=== PATIENT | female | born 1965 | race Caucasian/White ===

== ENCOUNTER 2018-01-02 15:59 | Outpatient (CLI) | payer OTHER | END 2018-01-02 16:00 | disposition home or self-care (01) | LOC: BICMAMMO 15:59 | PROVIDERS: ATTEND Obstetrics & Gynecology | DX: Z12.31 Encounter for screening mammogram for malignant neoplasm of breast (principal) | CPT/HCPCS: 77063; 77067 ==

== ENCOUNTER 2019-01-05 09:56 | Outpatient (CLI) | payer OTHER ==
--- NOTE | 2019-01-05 13:15 | MMO ---
Bilateral MAMMO Bilat Screen [facility]. CLINICAL HISTORY: Patient is 53 years old and is seen for screening. The patient has no family history of breast cancer. The patient has no personal history of cancer. The patient has a history of left needle biopsy at age 47 - fibroadenoma and bilateral needle biopsy in 20'S - benign. VIEWS: The views performed were: bilateral craniocaudal with tomosynthesis; bilateral mediolateral oblique with tomosynthesis; and right exaggerated craniocaudal. FILMS COMPARED: The present examination has been compared to prior imaging studies performed at [facility] on 12/03/2014, 12/06/2015, 12/12/2016 and 01/02/2018. This study has been interpreted with the assistance of computer-aided detection. MAMMOGRAM FINDINGS: There are scattered fibroglandular densities. Left biopsy clip with stable nodule. There are no suspicious masses, suspicious calcifications, or new areas of architectural distortion. IMPRESSION: THERE IS NO MAMMOGRAPHIC EVIDENCE OF MALIGNANCY. A ROUTINE FOLLOW-UP MAMMOGRAM IN 1 YEAR IS RECOMMENDED. THE RESULTS OF THIS EXAM WERE SENT TO THE PATIENT. ACR BI-RADS Category 2 - Benign finding MAMMOGRAPHY NOTE: 1. A negative mammogram report should not delay a biopsy if a dominant of clinically suspicious mass is present. 2. Approximately 10% to 15% of breast cancers are not detected by mammography. 3. Adenosis and dense breasts may obscure an underlying neoplasm. Reported by: MARÍA KAUFMAN MD Electonically Signed: [id number]
== END 2019-01-05 09:57 | disposition home or self-care (01) ==
LOC: BICMAMMO 09:56
PROVIDERS: ATTEND Obstetrics & Gynecology
DX: Z12.31 Encounter for screening mammogram for malignant neoplasm of breast (principal)
CPT/HCPCS: 77063; 77067

== ENCOUNTER 2019-03-21 05:10 | Inpatient (IN) | payer OTHER ==
[2019-03-21] MEDS ORDERED: Acetaminophen 325 MG TAB PO PRN (06:26)
[2019-03-21] MEDS ORDERED: Ondansetron PF 4 MG/2 ML Vial IVP PRN (06:26)
[2019-03-21] MEDS ORDERED: Sodium Chloride 0.9% 1,000 ML IV SCH (06:30)
[2019-03-21 07:08] VITALS: BMI 23.3
[2019-03-21] MEDS ORDERED: Famotidine/PF 20 mg/2ml Vial SLOW IVP SCH ×2 (07:30→21:00)
[2019-03-21] MEDS ORDERED: Enoxaparin Sodium 40 MG/0.4 ML SYRINGE SC SCH (09:00)
[2019-03-21] MEDS ORDERED: predniSONE 20 MG TAB PO SCH (11:30)
[2019-03-21 15:14] VITALS: BP 128/76; TEMP 98.8
--- NOTE | 2019-03-21 16:56 | HP ---
This is a short-stay summary. DISCHARGE DIAGNOSES: As of the following; 1. Angioedema, most likely from lisinopril. 2. History of hypertension. 3. Reflux. HOSPITAL COURSE: The patient is a very pleasant 53-year-old female who initially presented to the hospital with some swelling of her tongue and difficulty swallowing. The patient stated that she initially noticed it at around 4 a.m. this morning that woke her up. She stated that her symptoms gradually worsened to the point that she felt that her right side of the face was a little bit swollen, and she got afraid that she would not be able to take a deep breath or breathe, so she came into the ER for further evaluation. The patient states that she has had certain recent allergies to doxycycline and also to penicillin which she never had a problem with before. She denies taking any recent new medications. She denies eating out. She denies any bzru-mzj-dncklgl medications. PAST MEDICAL HISTORY: As of the following; she has a; 1. History of hyperlipidemia. 2. Hypertension. 3. GERD. PAST SURGICAL HISTORY: She has had a x3 and sinus surgery. SOCIAL HISTORY: She denies any alcohol use, drug use, or smoking history. She is a full code. Lives with her family. ALLERGIES: SHE IS ALLERGIC TO NOW ROBERTO INHIBITORS, CIPRO, DOXYCYCLINE, PENICILLIN, AND SULFA. MEDICATIONS: 1. She takes Prilosec 20 mg daily. 2. Simvastatin 10 mg daily. 3. She is also on Zyrtec 1 p.o. daily. FAMILY HISTORY: No history of heart disease, cancer, or stroke. PHYSICAL EXAMINATION: VITAL SIGNS: As of the following; temperature 98.6, pulse 84, respirations 16, O2 sat is 98% room air, and blood pressure 137/76. GENERAL: She is awake, alert, and oriented x3. Does not appear in distress. HEENT: She does have some swelling noted of her right cheek area and the nose. Tongue thickness noted. CV: S1, S2 present. No murmurs, rubs, or gallops. LUNGS: Clear to auscultation. No rhonchi or wheezes noted. ABDOMEN: Soft and nontender. Bowel sounds are present x2. EXTREMITIES: She has no edema. Pedal pulses are present x2. NEUROVASCULAR: No focal deficits noted. She does have some thickening of her speech when she is talking, otherwise normal. SKIN: No cuts, lesions, or bruises noted. I actually went back to reassess her later on before her discharge, and the patient was able to speak more clearly, and she felt much better. LABORATORY DATA: Her laboratory results were as of the following; WBCs of 10.5, hemoglobin 14.6, hematocrit of 43.5, and platelets of 343. Sodium of 140, potassium 4.1, BUN of 8, and creatinine 0.7. Her AST was 20, ALT was 28, and alkaline phosphatase was 43. Her CK was 131. ASSESSMENT AND PLAN: The patient is a very pleasant 53-year-old female who presents to the hospital with swelling. 1. Angioedema, most likely from lisinopril. We will stop her lisinopril. I have asked the patient to recheck her blood pressure on a daily basis, sometimes maybe twice if able to. Her blood pressure here has been very normal, I will prescribe her some metoprolol for now, and I have told her to take it only if her blood pressure starts creeping up. I have also asked her to follow up with her primary care doctor. Also, I will give her Medrol Dosepak and I will put on Pepcid and I have told her to stop the Prilosec until the Pepcid is done for 14 days. I also told her that if anything changes, if her symptoms worsen, she can come into the hospital. The patient is able to tolerate oral food and liquids without any problems as I mentioned earlier. When I went back to see her the second time, she actually felt better and her speech was back to normal. Again, the patient will be discharged to home. I also recommend her getting an allergy testing since she has had multiple allergies in the past that would be helpful for her. The patient in the ER was given some epinephrine, Benadryl, also Solu-Medrol, and Pepcid, just FYI. I have also told her to continue taking the Benadryl as needed. However, I have prescribed to her the Pepcid and a Medrol Dosepak. Job ID: [id number]
[2019-03-21] MEDS ORDERED: Atorvastatin Calcium 20 MG TAB PO SCH (21:00)
[2019-03-22] MEDS ORDERED: predniSONE 20 MG TAB PO SCH (08:00)
[2019-03-22] MEDS ORDERED: Loratadine 10 MG TAB PO SCH (09:00)
== END 2019-03-21 16:17 | disposition home or self-care (01) | DRG 916 ==
LOC: ERS 05:10 → ONC 05:48
PROVIDERS: ADMIT Internal Medicine; ATTEND Internal Medicine
DX: T78.3XXA Angioneurotic edema, initial encounter (principal); T46.4X5A Adverse effect of angiotensin-converting-enzyme inhibitors, initial encounter; I10 Essential (primary) hypertension; K21.9 Gastro-esophageal reflux disease without esophagitis; Z88.0 Allergy status to penicillin; Z88.8 Allergy status to other drugs, medicaments and biological substances; E78.5 Hyperlipidemia, unspecified; Z88.1 Allergy status to other antibiotic agents; Z88.2 Allergy status to sulfonamides
CPT/HCPCS: 99285; J7512; S0028

== ENCOUNTER 2020-01-07 12:51 | Outpatient (CLI) | payer OTHER ==
--- NOTE | 2020-01-07 13:38 | MMO ---
Bilateral MAMMO Bilat Screen [facility]. CLINICAL HISTORY: Patient is 54 years old and is seen for screening. The patient has no family history of breast cancer. The patient has no personal history of cancer. The patient has a history of left needle biopsy at age 47 - fibroadenoma and bilateral needle biopsy in 20'S - benign. VIEWS: The views performed were: bilateral craniocaudal with tomosynthesis and bilateral mediolateral oblique with tomosynthesis. FILMS COMPARED: The present examination has been compared to prior imaging studies performed at [facility] on 12/12/2016, and at [facility] on 12/06/2015, 01/02/2018 and 01/05/2019. This study has been interpreted with the assistance of computer-aided detection. MAMMOGRAM FINDINGS: There are scattered fibroglandular densities. Finding 1: There are stable benign appearing calcifications seen in both breasts. Finding 2: There are stable benign appearing densities seen in both breasts. Finding 3: There is a stable round mass with circumscribed margins and associated biopsy clip seen in the central region of the left breast. There are no suspicious masses, suspicious calcifications, or new areas of architectural distortion. IMPRESSION: THERE IS NO MAMMOGRAPHIC EVIDENCE OF MALIGNANCY. A ROUTINE FOLLOW-UP MAMMOGRAM IN 1 YEAR IS RECOMMENDED. THE RESULTS OF THIS EXAM WERE SENT TO THE PATIENT. ACR BI-RADS Category 2 - Benign finding MAMMOGRAPHY NOTE: 1. A negative mammogram report should not delay a biopsy if a dominant of clinically suspicious mass is present. 2. Approximately 10% to 15% of breast cancers are not detected by mammography. 3. Adenosis and dense breasts may obscure an underlying neoplasm. Reported by: JOSIE SCHWARTZ MD Electonically Signed: [id number]
== END 2020-01-07 12:52 | disposition home or self-care (01) ==
LOC: BICMAMMO 12:51
PROVIDERS: ATTEND Obstetrics & Gynecology
DX: Z12.31 Encounter for screening mammogram for malignant neoplasm of breast (principal); Z91.89 Other specified personal risk factors, not elsewhere classified
CPT/HCPCS: 77063; 77067

== ENCOUNTER 2021-01-10 12:55 | Outpatient (CLI) | payer OTHER | END 2021-01-10 12:56 | disposition home or self-care (01) | LOC: BICMAMMO 12:55 | PROVIDERS: ATTEND Obstetrics & Gynecology | DX: Z12.31 Encounter for screening mammogram for malignant neoplasm of breast (principal); Z91.89 Other specified personal risk factors, not elsewhere classified | CPT/HCPCS: 77063; 77067 ==

== ENCOUNTER 2021-03-13 08:09 | Outpatient (CLI) | payer OTHER | END 2021-03-13 08:10 | disposition home or self-care (01) | LOC: SCSMRI 08:09 | PROVIDERS: ATTEND Family Medicine | DX: M47.816 Spondylosis without myelopathy or radiculopathy, lumbar region (principal); G89.4 Chronic pain syndrome; M51.9 Unspecified thoracic, thoracolumbar and lumbosacral intervertebral disc disorder; M48.061 Spinal stenosis, lumbar region without neurogenic claudication | CPT/HCPCS: 72100; 72148 ==

== ENCOUNTER 2021-03-17 15:39 | Outpatient (CLI) | payer OTHER | END 2021-03-17 15:40 | disposition home or self-care (01) | LOC: SCSMRI 15:39 | PROVIDERS: ATTEND Family Medicine | DX: S22.081A Stable burst fracture of T11-T12 vertebra, initial encounter for closed fracture (principal); M51.24 Other intervertebral disc displacement, thoracic region; M43.9 Deforming dorsopathy, unspecified | CPT/HCPCS: 72146 ==

== ENCOUNTER 2022-01-15 11:31 | Outpatient (CLI) | payer BC | END 2022-01-15 11:32 | disposition home or self-care (01) | LOC: BICMAMMO 11:31 | PROVIDERS: ATTEND Family Medicine | DX: Z12.31 Encounter for screening mammogram for malignant neoplasm of breast (principal); Z80.3 Family history of malignant neoplasm of breast | CPT/HCPCS: 77063; 77067 ==

== ENCOUNTER 2023-02-08 15:48 | Outpatient (CLI) | payer BC | END 2023-02-08 15:49 | disposition home or self-care (01) | LOC: BICMAMMO 15:48 | PROVIDERS: ATTEND Internal Medicine Endocrinology, Diabetes & Metabolism | DX: M81.8 Other osteoporosis without current pathological fracture (principal); M85.851 Other specified disorders of bone density and structure, right thigh | CPT/HCPCS: 77080 ==

== ENCOUNTER 2024-01-29 08:05 | Outpatient (CLI) | payer BC | END 2024-01-29 08:06 | disposition home or self-care (01) | LOC: BICMAMMO 08:05 | PROVIDERS: ATTEND Obstetrics & Gynecology | DX: N63.22 Unspecified lump in the left breast, upper inner quadrant (principal) | CPT/HCPCS: G0279 ==

== ENCOUNTER 2025-03-15 08:23 | Outpatient (CLI) | payer BC | END 2025-03-15 08:24 | disposition home or self-care (01) | LOC: SCSBT 08:23 | PROVIDERS: ATTEND Internal Medicine Endocrinology, Diabetes & Metabolism | DX: M81.8 Other osteoporosis without current pathological fracture (principal) | CPT/HCPCS: 77080 ==